=== PATIENT | male | born 1960 | race Caucasian/White ===

== ENCOUNTER 2016-07-30 15:15 | Inpatient (IN) | payer MEDICARE, OTHER ==
--- NOTE | ~2016-07-30 | HP ---
History And Physical [address] [place]. [address] NAME: ROMEO BARRIGA : 58 STATUS : ADM Zakia PAT#: [id number] AGE: 55 ADM/REG DATE : 07/30/16 MR#: [id number] REPORT SERV DATE: 07/31/16 DICTATED BY: ANTHONY PALOMARES DATE: 07/30/16 REPORT STATUS : Draft TRANSCRIBED BY: MODL DATE: 07/30/16 DATE OF ADMISSION: 07/30/2016 CHIEF COMPLAINT: Nausea, vomiting, and diarrhea with chills and cough. HISTORY OF PRESENT ILLNESS: This is a 55-year-old male patient with a history of Down's syndrome, Crow's esophagus, and hypercholesteremia, who is a resident at [facility], was brought to the emergency room today to be evaluated with the above-mentioned complaint. History is obtained from the patient's family who is at bedside and his caregiver who is also at bedside. According to available data, Mr. Barriga had been having some vomiting and diarrhea for about two to three days now. Today, he started having chills as well and has had a cough with upper airway rattling for the last couple of days as well. He got some breathing treatments and CPT at the facility, but continued to have vomiting and runny diarrhea, and the patient was sent to the emergency room to be evaluated. In the emergency room, he continued to have vomiting while he was in the lobby and initial workup including CT scan of his abdomen and pelvis and chest x-ray showed bibasilar infiltrates. Hospitalist Service is asked to admit him for further evaluation and treatment. At the time of my evaluation, Mr. Barriga was awake and alert. He has Down's syndrome and is not very communicate, but he does communicate with his caregivers. Apparently, he has not complained of any chest pain or palpitations. He does not seem to have any orthopnea. He does have a cough with some upper airway rattling and secretions. No recent history of hemoptysis, night sweats, or weight loss. He has not had any recent falls or loss of consciousness. He has not had any temperature, but did have some chills in the last few hours of being here. He has not had any hematemesis, hematochezia, or hematuria. No other history of recent travel or exposures other than those mentioned above. PAST MEDICAL HISTORY: Significant for history of Down's syndrome, Crow's esophagus, and hypercholesteremia. SOCIAL HISTORY: He has never smoked, does not drink, or use recreational drugs. FAMILY HISTORY: Noncontributory. MEDICATIONS: His medications at home were reviewed by me in the chart today and reordered by me. REVIEW OF SYSTEMS: As in history of present illness. All other systems were reviewed in detail and are quite unremarkable. PHYSICAL EXAMINATION: History And Physical [address] [address] NAME: ROMEO BARRIGA : 58 STATUS : ADM Zakia PAT#: [id number] AGE: 55 ADM/REG DATE : 07/30/16 MR#: [id number] REPORT SERV DATE: 07/31/16 DICTATED BY: ANTHONY PALOMARES DATE: 07/30/16 REPORT STATUS : Draft TRANSCRIBED BY: JACI DATE: 07/30/16 GENERAL: This is a pleasant 55-year-old, not in any acute distress. HEENT: His head is atraumatic, normocephalic. He is alert, awake, oriented to time, place, and person. His pupils are equal, reacting to light and accommodating. External ocular muscles are intact. Membranes are moist and pink. Sclerae are nonicteric. Oral hygiene is poor. NECK: Supple with no jugular venous distention, lymphadenopathy, or thyromegaly. LUNGS: Auscultation of his lungs revealed bilateral coarse crackles. HEART: Heart sounds were regular with no murmurs, rubs, or gallops. ABDOMEN: Soft, nontender. Bowel sounds are present. EXTREMITIES: Showed no cyanosis, clubbing, or edema. NEUROLOGIC: Grossly intact with no focal sensory or motor deficits. Higher functions appear intact. He does have Down's syndrome as mentioned above and does not communicate very well. VITAL SIGNS: His vital signs today showed a temperature of 99.7, pulse 88, respirations 16 a minute, blood pressure was 118/72, oxygen saturations were 100% breathing 2 L of oxygen via nasal cannula. LABORATORY DATA: Reviewed on the Gnzo system showed a sodium of 139, potassium 4.1, chloride 107, CO2 of 23, BUN was 22 with a creatinine of 1.06, blood glucose was 120. His alkaline phosphatase, ALT, AST, and lipase were within normal limits. CBC showed a normal white blood cell count, hemoglobin was 12.3, hematocrit 35.9, and platelet count was 167. Urinalysis was not done today. Films of the CT scan of his abdomen and pelvis and chest x- ray were reviewed by me on the PACS today and interpreted by me. Per my interpretation, there are bilateral small basilar infiltrates, left greater than right. There was no effusion. Please see Radiology report for details. The rest of the abdomen and pelvis was unremarkable. IMPRESSION: 1. Nausea, vomiting, and diarrhea. 2. Healthcare-associated pneumonia versus aspiration pneumonitis. 3. Hiatal hernia. 4. History of Crow's esophagus. 5. Down's syndrome. 6. Hypercholesterolemia. PLAN: We will admit Mr. Barriga to Med/Surg tele floor for a 24-hour observation period. After cultures are obtained, we will start him on empiric IV antibiotics for healthcare- associated pneumonia, although his white blood cell count is normal and given his history, it could be from acute aspiration and aspiration pneumonitis. We will go ahead and get a lactate level and procalcitonin. We will start him on Zosyn intravenously for now. We will maximize bronchodilator treatments, continue supplemental oxygen therapy, and start him on CPT as well. He will be on IV fluids for volume resuscitation and we will provide intravenous Zofran and/or Phenergan on an as needed basis for his symptoms. We will also check his stool for Clostridium difficile. We will keep him n.p.o. for now and place him on unfractionated heparin for DVT prophylaxis while he is here. I have discussed the above plans with the patient's caregivers and the above plan of care was explained to them. They are in agreement with it. History And Physical [address] [place]. [address] NAME: ROMEO BARRIGA : 58 STATUS : ADM Zakia PAT#: [id number] AGE: 55 ADM/REG DATE : 07/30/16 MR#: [id number] REPORT SERV DATE: 07/31/16 DICTATED BY: ANTHONY PALOMARES DATE: 07/30/16 REPORT STATUS : Draft TRANSCRIBED BY: JACI DATE: 07/30/16 Hospitalist Service will be following him during his stay here. MR/MARIANOL Anthony Palomares M.D. / [id number] CC: Elfego Shore MD
--- NOTE | ~2016-07-30 | DS ---
Discharge Summary [facility] [address] [place]. [address] NAME: ROMEO CANCINO : 58 STATUS : DIS IN PAT#: [id number] AGE: 55 ADM/REG DATE : 07/31/16 MR#: [id number] REPORT SERV DATE: 08/07/16 DICTATED BY: ROCÍO VALDIVIA DATE: 08/06/16 REPORT STATUS : Draft TRANSCRIBED BY: MODL DATE: 08/06/16 ADMISSION DATE: 07/31/2016 DISCHARGE DATE: 08/06/2016 This is a 55-year-old male who is going to be discharged with the final diagnoses of: 1. Bilateral pneumonia. 2. Possible aspiration. 3. History of Crow's esophagus. 4. Down syndrome. DIAGNOSTIC EXAM: CAT scan of the abdomen and pelvis showing evaluation is limited due to artifact arising from the patient's arms; prominent distal colonic fecal stasis; prominence of the urinary bladder wall, thickness nonspecific; hiatal hernia, bibasilar infiltrates, left greater than the right; gallbladder and pancreas, not well visualized. Chest x-ray showing minimal atelectasis or infiltrate in the medial lung bases, otherwise, no acute cardiopulmonary abnormality. Swallowing study showing no aspiration. Gastric emptying study showing delayed gastric emptying with 12% emptying at 90 minutes. Repeat chest x-ray showed bilateral asymmetric infiltrates, left lung is worse than the right; increased density in the left lung base consistent with consolidation and/or effusion; chest is worse compared to the previous study. HOSPITAL COURSE: Please refer to the H and P done by Dr. Cochran dated on 07/31/[address] Shore' interim discharge on 08/05/2016. Since I took care of this patient, the patient is being treated with broad-spectrum antibiotics for bilateral pneumonia. The patient continued to improve and so far has completed five days of treatment of Zosyn. He is now afebrile and saturating at 95% on room air and able to eat. We got PT evaluation and they recommended that the patient be on mechanical soft diet, choppy gravy, and thin liquids. They did not find any aspiration in the patient. The patient is able to eat without any choking and he will be discharged back to [facility] with the above diagnosis. He will be on the following medications: Flonase two sprays at bedtime, Protonix 40 mg twice a day, vitamin D 1000 units a day, Lac-Hydrin lotion, oyster calcium 500 mg three times a day, iron 300 mg twice a day, VESIcare 5 mg a day, DuoNeb inhaled twice a day, and Colace 100 mg twice a day. The patient will follow up with [facility] doctor. This has been explained to the sister and she agreed and understood the plan. SHANEL/JACI Rocío Valdivia M.D. / [id number] Discharge Summary [address] [address] NAME: ROMEO CANCINO : 58 STATUS : DIS IN PAT#: [id number] AGE: 55 ADM/REG DATE : 07/31/16 MR#: [id number] REPORT SERV DATE: 08/07/16 DICTATED BY: ROCÍO VALDIVIA DATE: 08/06/16 REPORT STATUS : Draft TRANSCRIBED BY: JACI DATE: 08/06/16 CC: Familia Haji TINA [place] doctor
--- NOTE | ~2016-07-30 | IDS ---
Interim Discharge Summary [facility] [address] [place]. [address] NAME: ROMEO CANCINO : 58 STATUS : ADM IN [facility]#: [id number] AGE: 55 ADM/REG DATE : 07/31/16 MR#: [id number] REPORT SERV DATE: 08/05/16 DICTATED BY: ELFEGO NAVARRO DATE: 08/04/16 REPORT STATUS : Draft TRANSCRIBED BY: MODJacquelyn DATE: 08/04/16 ADMISSION DATE: 07/31/2016 DISCHARGE DATE: DATE OF INTERIM DISCHARGE: 08/04/2016. PROCEDURES DONE: 1. 08/03/2012, chest x-ray: Bilateral asymmetric infiltrates. Left lung is worse than the right. Increased density in the left lung base, consistent with consolidation and/or effusion. The chest is worse compared to previous study. 2. 08/03/2016, gastric emptying study, delayed gastric emptying with 12% emptying at 90 minutes. Normal ranges 50% or greater. 3. 08/02/2015, swallow study:. a. No aspiration. 4. 08/02/2015, chest x-ray:. a. Persistent left perihilar basilar infiltrate as well as right suprahilar infiltrate with small left pleural effusion. The infiltrates appear minimally improved since prior exam. REASON FOR ADMISSION: Nausea, vomiting, and diarrhea with chills and cough. HISTORY OF HOSPITAL STAY: A 55-year-old white male with a past medical history of Down syndrome, Crow's esophagus, and hypercholesterolemia presenting with nausea, vomiting, and diarrhea with chills and cough. Unfortunately, the patient is not a very good historian. The patient had a questionable health-associated pneumonia versus aspiration as an initial diagnosis. The patient was started on Zosyn. Eventually, the patient's chest x- ray showed improving infiltrate. However, questionable if the patient is having atelectasis. Unfortunately, the patient cannot follow commands enough due to the Down syndrome. In addition, the patient is also bed-bound. The patient cannot stand and mobilize in the room. Therefore, the patient's pneumonia will be recurring quite frequently post discharge. In addition, the patient also had a positive gastric emptying study. The patient has been started on mechanical soft. The patient is not a good candidate for Reglan for prokinetic medications. Therefore, we will try to get dietary consult for further eval and treatment of gastroparesis. Made recommendations of frequent and small meals to decrease nausea and vomiting. DIAGNOSES UPON DISCHARGE: 1. Nausea, vomiting, and diarrhea secondary to gastroparesis. Recommend getting a dietary consult for eval and treatment of gastroparesis. Need recommendation for increasing frequency and small meals to decrease nausea and vomiting. 2. Healthcare-associated pneumonia versus aspiration. Swallow study shows no aspiration. The patient received approximately five days of Zosyn. WBC has been down. The patient does not show any fevers at this time. Unfortunately, the patient cannot mobilize since he is bed-bound. In addition, the patient does not generate enough negative pressure to cough any significant sputum. 3. Down syndrome, currently asymptomatic. Interim Discharge Summary [address] [address] NAME: ROMEO CANCINO : 58 STATUS : ADM IN [facility]#: [id number] AGE: 55 ADM/REG DATE : 07/31/16 MR#: [id number] REPORT SERV DATE: 08/05/16 DICTATED BY: ELFEGO NAVARRO DATE: 08/04/16 REPORT STATUS : Draft TRANSCRIBED BY: AJCI DATE: 08/04/16 DELANEY/JACI Elfego Navarro MD / [id number] CC: MD EMERALD Bridges
[~2016-07-30 15:15] MED LIST: ACET500CAP PO; AMMONIUM LAC122 EX; ANTI-FUNGAL12 TOP; BABY OIL OT; BACDS PO; BAZA TOP; CALMOSEPTINE O2.5 OZ T; CARMEX T; CARMEX TOP; CEFT5 PO; CHAPSTICK T; CIP5 PO; CITRACAL PO; CLARIT10 PO; DIOCTO50 MG/5 ML PO; DSS PO; FER-IRON15 MG/0.6 PO; FERROUS SULF325 M1 PO; FLOMAX4 PO; FLONASE NAS; FLOXIN OTIC OT; FLUCON1 PO; IRON325 MG PO; K500 PO; KENCR.1 TOP; LAC HYDRIN 12% EX; LAC-HYDRIN EX; LAC-HYDRIN121 EX; LAC-HYDRIN121 TOP; LEVAQUIN5T PO; LOTRIMIN AF21 EX; LOTRISONE EX; LUBRIDERM LOTION4 O2 TOP; LUNESTA1 MG PO; LUNESTA3 MG PO; MAXIMUM D3 PO; MELATONIN5 M1 PO; MIRALAXPKT PO; MUCINEX CGH1 ML OR; NEUR100 PO; OCUFLOX OT; OS500+D PO; OYST-CAL500 MG PO; OYSTER SHELL CALCIUM PO; PHENYLEPHRINE RC; PROLIA60 MG/1 ML SC; PROTONIX PO; PROTONIX20 MG PO; RECLAST IV; REG5 PO; SELENIUM; SELENIUM SULFIDE TOP; SELENIUM T; SELSUN BLUE3 % EX; TITRALALIQ PO; TUCKS EX; TYLENOL PM PO; VALTREX1 GM PO; VESICARE10 MG PO; VESICARE5 PO; VITAMIN D3 PO; VITAMIN D31000 UNIT PO; ZOCOR10 PO; ZOCOR20 PO; [UNRECOGNIZED DRUG - OTHER]; [UNRECOGNIZED DRUG - OTHER] T; [UNRECOGNIZED DRUG - OTHER] T; [UNRECOGNIZED DRUG - OTHER] T; [UNRECOGNIZED DRUG - OTHER] T; [UNRECOGNIZED DRUG - OTHER] T
[2016-07-30 15:41] LABS: BASOPHILS 0.3 %; BASOPHILS ABSOLUTE 0.02 10/3/uL (0.0-0.16); EOSINOPHILS 0.1 %; EOSINOPHILS ABSOLUTE 0.01 10/3/uL (0.0-0.53); ER CBC TAT 0 Hrs 05 Mins; HEMOGLOBIN 12.3 g/dL (13.6-17.8); IMMATURE GRANULOCYTES 0.7 %; IMMATURE GRANULOCYTES ABSOLUTE 0.05 10/3/uL (0.0-0.11); LYMPHOCYTES 9.9 %; LYMPHOCYTES ABSOLUTE 0.75 10/3/uL (0.67-4.30); MEAN CORPUS HGB CONC 34.3 g/dL (32.0-36.0); MEAN CORPUSCULAR HEMOGLOB 33.2 pg (26.0-34.0); MEAN PLATELET VOLUME 10.5 fL (9.2-13.0); MONOCYTES 3.5 %; MONOCYTES ABSOLUTE 0.27 10/3/uL (0.21-1.20); NEUTROPHILS 85.5 %; NEUTROPHILS ABSOLUTE 6.51 10/3/uL (2.02-8.40); PLATELET COUNT 167 10/3/uL (150-400); RBC DISTRIBUTION WIDTH 13.2 % (12.0-16.0); WHITE BLOOD CELLS 7.6 10/3/uL (4.5-10.5)
[2016-07-30 15:48] LABS: HEMATOCRIT 35.9 % (40.0-51.0); MANUAL DIFF NO %
[2016-07-30 15:55] LABS: A/G RATIO 0.7 (0.7-1.9); ALBUMIN 2.9 G/DL (3.5-5.0); ALKALINE PHOSPHATASE 87 U/L (45-117); BUN (BLOOD UREA NITROGEN) 22 MG/DL (6-23); CHLORIDE, SERUM 107 MMOL/L (96-112); CO2 (CARBON DIOXIDE) 23 MMOL/L (24-34); CREATININE 1.06 MG/DL (0.70-1.30); GFR AFRICAN AMERICAN 90 ML/MIN (>=60); GFR NON AFRICAN AMERICAN 78 ML/MIN (>=60); GLOBULIN 4.1 G/DL (2.5-4.1); GLUCOSE, SERUM 120 MG/DL (60-99); POTASSIUM, SERUM 4.1 MMOL/L (3.5-5.3); SGOT(AST) 21 U/L (5-40); SGPT(ALT) 30 U/L (5-65); SODIUM, SERUM 139 MMOL/L (135-148); TOTAL BILIRUBIN 0.6 MG/DL (0-1.2)
[2016-07-30] MEDS ORDERED: VITAMIN D31000 UNIT PO (19:30)
[2016-07-30] MEDS ORDERED: LAC-HYDRIN TOP (19:31)
[2016-07-30] MEDS ORDERED: OYST-CAL500 MG PO (19:32)
[2016-07-30] MEDS ORDERED: BAZA T (19:32)
[2016-07-30] MEDS ORDERED: VESICARE5 PO (19:34)
[2016-07-30] MEDS ORDERED: FESO4UDL PO (19:34)
[2016-07-30] MEDS ORDERED: FLONASE NAS (19:35)
[2016-07-30] MEDS ORDERED: DUONEB INH (19:35)
[2016-07-30] MEDS ORDERED: SILACE60 MG/15 M PO (19:39)
[2016-07-30] MEDS ORDERED: COLACEUDL PO (19:39)
[2016-07-30] MEDS ORDERED: PROTONI1 PO (19:40)
[2016-07-31 04:03] LABS: BASOPHILS 0.2 %; BASOPHILS ABSOLUTE 0.01 10/3/uL (0.0-0.16); EOSINOPHILS 0.7 %; EOSINOPHILS ABSOLUTE 0.04 10/3/uL (0.0-0.53); HEMOGLOBIN 10.9 g/dL (13.6-17.8); IMMATURE GRANULOCYTES 0.5 %; IMMATURE GRANULOCYTES ABSOLUTE 0.03 10/3/uL (0.0-0.11); LYMPHOCYTES ABSOLUTE 0.66 10/3/uL (0.67-4.30); MEAN CORPUSCULAR HEMOGLOB 32.9 pg (26.0-34.0); MEAN PLATELET VOLUME 10.5 fL (9.2-13.0); MONOCYTES ABSOLUTE 0.44 10/3/uL (0.21-1.20); NEUTROPHILS 78.6 %; NEUTROPHILS ABSOLUTE 4.31 10/3/uL (2.02-8.40); PLATELET COUNT 148 10/3/uL (150-400); RBC DISTRIBUTION WIDTH 13.1 % (12.0-16.0); RED CELL COUNT 3.31 10/6/uL (4.7-6.1); WHITE BLOOD CELLS 5.5 10/3/uL (4.5-10.5)
[2016-07-31 04:08] LABS: HEMATOCRIT 32.1 % (40.0-51.0); MANUAL DIFF NO %
[2016-07-31 04:36] LABS: BUN (BLOOD UREA NITROGEN) 19 MG/DL (6-23); CALCIUM, SERUM 8.2 MG/DL (8.5-10.4); CHLORIDE, SERUM 107 MMOL/L (96-112); CO2 (CARBON DIOXIDE) 27 MMOL/L (24-34); CREATININE 0.98 MG/DL (0.70-1.30); GFR AFRICAN AMERICAN 99 ML/MIN (>=60); GFR NON AFRICAN AMERICAN 86 ML/MIN (>=60); GLUCOSE, SERUM 93 MG/DL (60-99); PHOSPHORUS, SERUM 2.6 MG/DL (2.5-4.5); POTASSIUM, SERUM 3.9 MMOL/L (3.5-5.3); SODIUM, SERUM 141 MMOL/L (135-148)
[2016-08-01 06:19] LABS: HEMOGLOBIN 10.1 g/dL (13.6-17.8); MANUAL DIFF YES %; MEAN CORPUS HGB CONC 34.8 g/dL (32.0-36.0); MEAN CORPUSCULAR VOLUME 94.8 fL (80-100); MEAN PLATELET VOLUME 10.4 fL (9.2-13.0); PLATELET COUNT 160 10/3/uL (150-400); RBC DISTRIBUTION WIDTH 12.5 % (12.0-16.0); RED CELL COUNT 3.06 10/6/uL (4.7-6.1); WHITE BLOOD CELLS 6.5 10/3/uL (4.5-10.5)
[2016-08-01 06:41] LABS: CALCIUM, SERUM 8.1 MG/DL (8.5-10.4); CHLORIDE, SERUM 105 MMOL/L (96-112); CREATININE 0.67 MG/DL (0.70-1.30); GFR AFRICAN AMERICAN 124 ML/MIN (>=60); GFR NON AFRICAN AMERICAN 107 ML/MIN (>=60); GLUCOSE, SERUM 75 MG/DL (60-99); POTASSIUM, SERUM 3.8 MMOL/L (3.5-5.3); SODIUM, SERUM 137 MMOL/L (135-148)
[2016-08-01 06:48] LABS: BUN (BLOOD UREA NITROGEN) 10 MG/DL (6-23); CO2 (CARBON DIOXIDE) 20 MMOL/L (24-34)
[2016-08-01 07:20] LABS: BAND NEUTROPHILS 14 %; EOSINOPHILS 2 %; EOSINOPHILS ABSOLUTE (CALC) 0.13 10/3/uL (0.0-0.53); LYMPHOCYTES 12 %; LYMPHOCYTES ABSOLUTE (CALC) 0.78 10/3/uL (0.67-4.30); MONOCYTES 12 %; MONOCYTES ABSOLUTE (CALC) 0.78 10/3/uL (0.21-1.20); NEUTROPHILS ABSOLUTE (CALC) 4.81 10/3/uL (2.02-8.40); PLATELET ESTIMATE ADQ (ADEQUATE); RBC MORPHOLOGY NORM (NORMAL); SEGMENTED NEUTROPHIL (0) 60 %; TOTAL NUCLEATED CELLS 100
[2016-08-01 08:18] LABS: PROCALCITONIN 0.56 ng/mL (<0.5)
[2016-08-01 12:21] LABS: BE (BASE EXCESS) -4.9 MEQ/L (0 +/- 2.5); CARBOXYHEMOGLOBIN 0.6 % (0-3); HCO3 (ACTUAL BICARBONATE) 18.3 MEQ/L (23-27); HEMOBLOGIN CONTENT 12.9 G/DL (14-18); INSTRUMENT SERIAL # 8083; METHEMOGLOBIN 0.1 % (0-3); O2 CONTENT 17.4 VOL% (18-24); PCO2 (CO2 TENSION) 29 MMHG (35-45); PO2 (O2 TENSION) 84 MMHG (79-93); SAMPLE Arterial; pH 7.42 (7.37-7.43)
[2016-08-01 12:22] LABS: DEVICE Nasal Cannula/Venti
[2016-08-02 04:12] LABS: CARBOXYHEMOGLOBIN 0.3 % (0-3); DEVICE NC; HCO3 (ACTUAL BICARBONATE) 24.2 MEQ/L (23-27); INSTRUMENT SERIAL # 11843; METHEMOGLOBIN 0.3 % (0-3); O2 CONTENT 16.1 VOL% (18-24); OPERATOR ID 17537; PCO2 (CO2 TENSION) 34 MMHG (35-45); PO2 (O2 TENSION) 79 MMHG (79-93); SAMPLE Arterial; pH 7.48 (7.37-7.43)
[2016-08-02 07:04] LABS: HEMATOCRIT 31.8 % (40.0-51.0); HEMOGLOBIN 11.2 g/dL (13.6-17.8); MEAN CORPUS HGB CONC 35.2 g/dL (32.0-36.0); MEAN CORPUSCULAR HEMOGLOB 33.2 pg (26.0-34.0); MEAN CORPUSCULAR VOLUME 94.4 fL (80-100); MEAN PLATELET VOLUME 10.5 fL (9.2-13.0); PLATELET COUNT 198 10/3/uL (150-400); RBC DISTRIBUTION WIDTH 12.3 % (12.0-16.0); RED CELL COUNT 3.37 10/6/uL (4.7-6.1); WHITE BLOOD CELLS 7.3 10/3/uL (4.5-10.5)
[2016-08-02 07:06] LABS: MANUAL DIFF YES %
[2016-08-02 07:15] LABS: BUN (BLOOD UREA NITROGEN) 7 MG/DL (6-23); CALCIUM, SERUM 8.1 MG/DL (8.5-10.4); CHLORIDE, SERUM 104 MMOL/L (96-112); CO2 (CARBON DIOXIDE) 27 MMOL/L (24-34); CREATININE 0.81 MG/DL (0.70-1.30); GFR AFRICAN AMERICAN 115 ML/MIN (>=60); GFR NON AFRICAN AMERICAN 99 ML/MIN (>=60); GLUCOSE, SERUM 89 MG/DL (60-99); POTASSIUM, SERUM 3.8 MMOL/L (3.5-5.3); SODIUM, SERUM 140 MMOL/L (135-148)
[2016-08-02 07:36] LABS: BAND NEUTROPHILS 2 %; BASOPHILS 1 %; BASOPHILS ABSOLUTE (CALC) 0.07 10/3/uL (0.0-0.16); EOSINOPHILS 2 %; EOSINOPHILS ABSOLUTE (CALC) 0.15 10/3/uL (0.0-0.53); IMMATURE GRANS ABSOLUTE (CALC) 0.07 10/3/uL (0.0-0.11); LYMPHOCYTES 7 %; LYMPHOCYTES ABSOLUTE (CALC) 0.51 10/3/uL (0.67-4.30); METAMYELOCYTES 1 %; MONOCYTES 10 %; MONOCYTES ABSOLUTE (CALC) 0.73 10/3/uL (0.21-1.20); NEUTROPHILS ABSOLUTE (CALC) 5.77 10/3/uL (2.02-8.40); PLATELET ESTIMATE ADQ (ADEQUATE); RBC MORPHOLOGY NORM (NORMAL); SEGMENTED NEUTROPHIL (0) 77 %; TOTAL NUCLEATED CELLS 100
[2016-08-03 07:22] LABS: ALBUMIN 2.2 G/DL (3.5-5.0); BUN (BLOOD UREA NITROGEN) 7 MG/DL (6-23); CALCIUM, SERUM 8.2 MG/DL (8.5-10.4); CHLORIDE, SERUM 103 MMOL/L (96-112); CO2 (CARBON DIOXIDE) 27 MMOL/L (24-34); CREATININE 0.91 MG/DL (0.70-1.30); GFR AFRICAN AMERICAN 109 ML/MIN (>=60); GFR NON AFRICAN AMERICAN 94 ML/MIN (>=60); GLUCOSE, SERUM 95 MG/DL (60-99); PHOSPHORUS, SERUM 3.1 MG/DL (2.5-4.5); POTASSIUM, SERUM 3.8 MMOL/L (3.5-5.3); SODIUM, SERUM 140 MMOL/L (135-148)
[2016-08-03 07:38] LABS: HEMATOCRIT 32.1 % (40.0-51.0); HEMOGLOBIN 11.2 g/dL (13.6-17.8); MEAN CORPUS HGB CONC 34.9 g/dL (32.0-36.0); MEAN CORPUSCULAR HEMOGLOB 32.7 pg (26.0-34.0); MEAN CORPUSCULAR VOLUME 93.9 fL (80-100); MEAN PLATELET VOLUME 10.4 fL (9.2-13.0); NUCLEATED RED BLOOD CELLS 0.3 /100WBC (0-0); PLATELET COUNT 222 10/3/uL (150-400); RBC DISTRIBUTION WIDTH 12.7 % (12.0-16.0); RED CELL COUNT 3.42 10/6/uL (4.7-6.1); WHITE BLOOD CELLS 6.9 10/3/uL (4.5-10.5)
[2016-08-03 07:39] LABS: MANUAL DIFF YES %
[2016-08-03 07:58] LABS: BAND NEUTROPHILS 7 %; BASOPHILS 1 %; BASOPHILS ABSOLUTE (CALC) 0.07 10/3/uL (0.0-0.16); EOSINOPHILS 3 %; EOSINOPHILS ABSOLUTE (CALC) 0.21 10/3/uL (0.0-0.53); IMMATURE GRANS ABSOLUTE (CALC) 1.04 10/3/uL (0.0-0.11); LYMPHOCYTES 17 %; LYMPHOCYTES ABSOLUTE (CALC) 1.17 10/3/uL (0.67-4.30); METAMYELOCYTES 11 %; MONOCYTES 8 %; MONOCYTES ABSOLUTE (CALC) 0.55 10/3/uL (0.21-1.20); MYELOCYTES 4 %; NEUTROPHILS ABSOLUTE (CALC) 3.86 10/3/uL (2.02-8.40); SEGMENTED NEUTROPHIL (0) 49 %; TOTAL NUCLEATED CELLS 100
[2016-08-03 07:59] LABS: PATH REVIEW YES; PLATELET ESTIMATE ADQ (ADEQUATE); RBC MORPHOLOGY NORM (NORMAL)
[2016-08-03 09:36] LABS: PATH REVIEW SEE PATHOLOGY REPORT
[2016-08-04 05:41] LABS: HEMATOCRIT 33.3 % (40.0-51.0); HEMOGLOBIN 11.5 g/dL (13.6-17.8); MEAN CORPUS HGB CONC 34.5 g/dL (32.0-36.0); MEAN CORPUSCULAR HEMOGLOB 32.5 pg (26.0-34.0); MEAN CORPUSCULAR VOLUME 94.1 fL (80-100); MEAN PLATELET VOLUME 10.3 fL (9.2-13.0); PLATELET COUNT 225 10/3/uL (150-400); RBC DISTRIBUTION WIDTH 12.8 % (12.0-16.0); RED CELL COUNT 3.54 10/6/uL (4.7-6.1)
[2016-08-04 05:45] LABS: MANUAL DIFF YES %
[2016-08-04 05:49] LABS: ALBUMIN 2.2 G/DL (3.5-5.0); BUN (BLOOD UREA NITROGEN) 8 MG/DL (6-23); CALCIUM, SERUM 8.2 MG/DL (8.5-10.4); CHLORIDE, SERUM 105 MMOL/L (96-112); CO2 (CARBON DIOXIDE) 25 MMOL/L (24-34); CREATININE 0.85 MG/DL (0.70-1.30); GFR AFRICAN AMERICAN 113 ML/MIN (>=60); GFR NON AFRICAN AMERICAN 97 ML/MIN (>=60); GLUCOSE, SERUM 92 MG/DL (60-99); PHOSPHORUS, SERUM 3.7 MG/DL (2.5-4.5); SODIUM, SERUM 140 MMOL/L (135-148)
[2016-08-04 07:16] LABS: BAND NEUTROPHILS 5 %; EOSINOPHILS 3 %; EOSINOPHILS ABSOLUTE (CALC) 0.21 10/3/uL (0.0-0.53); LYMPHOCYTES 18 %; LYMPHOCYTES ABSOLUTE (CALC) 1.26 10/3/uL (0.67-4.30); MONOCYTES 8 %; MONOCYTES ABSOLUTE (CALC) 0.56 10/3/uL (0.21-1.20); NEUTROPHILS ABSOLUTE (CALC) 4.97 10/3/uL (2.02-8.40); PLATELET ESTIMATE ADQ (ADEQUATE); RBC MORPHOLOGY NORM (NORMAL); SEGMENTED NEUTROPHIL (0) 66 %; TOTAL NUCLEATED CELLS 100
[2016-08-05 05:06] LABS: HEMATOCRIT 33.3 % (40.0-51.0); HEMOGLOBIN 11.7 g/dL (13.6-17.8); MEAN CORPUS HGB CONC 35.1 g/dL (32.0-36.0); MEAN CORPUSCULAR HEMOGLOB 33.1 pg (26.0-34.0); MEAN CORPUSCULAR VOLUME 94.1 fL (80-100); MEAN PLATELET VOLUME 10.4 fL (9.2-13.0); PLATELET COUNT 263 10/3/uL (150-400); RED CELL COUNT 3.54 10/6/uL (4.7-6.1); WHITE BLOOD CELLS 6.3 10/3/uL (4.5-10.5)
[2016-08-05 05:08] LABS: MANUAL DIFF YES %
[2016-08-05 05:24] LABS: A/G RATIO 0.6 (0.7-1.9); ALBUMIN 2.3 G/DL (3.5-5.0); ALKALINE PHOSPHATASE 78 U/L (45-117); CALCIUM, SERUM 8.3 MG/DL (8.5-10.4); CHLORIDE, SERUM 102 MMOL/L (96-112); CO2 (CARBON DIOXIDE) 27 MMOL/L (24-34); CREATININE 0.91 MG/DL (0.70-1.30); GFR AFRICAN AMERICAN 109 ML/MIN (>=60); GFR NON AFRICAN AMERICAN 94 ML/MIN (>=60); GLOBULIN 3.8 G/DL (2.5-4.1); GLUCOSE, SERUM 87 MG/DL (60-99); POTASSIUM, SERUM 4.1 MMOL/L (3.5-5.3); SGOT(AST) 26 U/L (5-40); SGPT(ALT) 30 U/L (5-65); SODIUM, SERUM 138 MMOL/L (135-148); TOTAL BILIRUBIN 0.7 MG/DL (0-1.2); TOTAL PROTEIN 6.1 G/DL (6.0-8.5)
[2016-08-05 05:37] LABS: BUN (BLOOD UREA NITROGEN) 12 MG/DL (6-23)
[2016-08-05 05:38] LABS: PHOSPHORUS, SERUM 4.7 MG/DL (2.5-4.5)
[2016-08-05 06:01] LABS: BAND NEUTROPHILS 1 %; EOSINOPHILS 3 %; EOSINOPHILS ABSOLUTE (CALC) 0.19 10/3/uL (0.0-0.53); IMMATURE GRANS ABSOLUTE (CALC) 0.19 10/3/uL (0.0-0.11); LYMPHOCYTES 23 %; LYMPHOCYTES ABSOLUTE (CALC) 1.45 10/3/uL (0.67-4.30); METAMYELOCYTES 3 %; MONOCYTES 9 %; MONOCYTES ABSOLUTE (CALC) 0.57 10/3/uL (0.21-1.20); NEUTROPHILS ABSOLUTE (CALC) 3.91 10/3/uL (2.02-8.40); PLATELET ESTIMATE ADQ (ADEQUATE); SEGMENTED NEUTROPHIL (0) 61 %; TOTAL NUCLEATED CELLS 100
[2016-08-06] MEDS ORDERED: VITAMIN D3 (11:07)
[2016-08-06] MEDS ORDERED: FERROUS SULFATE PO (11:10)
[2017-01-10] MEDS ORDERED: VESICARE5 PO (18:09)
[2017-01-10] MEDS ORDERED: PROTONI1 PO (18:09)
[2017-01-10] MEDS ORDERED: OYST-CAL500 MG PO (18:10)
[2017-01-10] MEDS ORDERED: DUONEB INH (18:10)
[2017-01-10] MEDS ORDERED: COLACEUDL PO (18:11)
[2017-01-10] MEDS ORDERED: VITAMIN D400 UNI1 PO (18:11)
[2017-01-10] MEDS ORDERED: LAC-HYDRIN TOP (18:11)
[2017-01-10] MEDS ORDERED: FLONASE NAS (18:14)
[2017-01-10] MEDS ORDERED: FERROUS SULFATE 15 MG/ML PO (18:14)
[2017-01-10] MEDS ORDERED: CLARIT10 PO (18:15)
[2017-01-10] MEDS ORDERED: REG5 PO (18:15)
[2017-01-10] MEDS ORDERED: ZOFRAN4 PO (18:16)
[2017-01-10] MEDS ORDERED: SELENIUM SULFIDE 2.5% TOP (18:17)
[2017-01-10] MEDS ORDERED: KLONO5 PO (18:18)
[2017-01-10] MEDS ORDERED: CALMOSEPTINE O2.5 OZ TOP (18:21)
[2017-01-10] MEDS ORDERED: [UNRECOGNIZED DRUG - OTHER] TOP (18:23)
[2017-01-19] MEDS ORDERED: SUCR PO (13:26)
[2017-01-19] MEDS ORDERED: ACETSUP650 PO/LIQ (13:27)
== END 2016-08-06 14:09 | DRG 193 ==
LOC: ER 15:15 → CDU1 20:41 → 2SO 07-31 22:39
PROVIDERS: Emergency Medicine; Hospitalist; Internal Medicine
DX: J18.9 Pneumonia, unspecified organism (principal); J96.92 Respiratory failure, unspecified with hypercapnia; J90 Pleural effusion, not elsewhere classified; K92.1 Melena; K31.84 Gastroparesis; Q90.9 Down syndrome, unspecified; K22.70 Barrett's esophagus without dysplasia; K44.9 Diaphragmatic hernia without obstruction or gangrene; E78.00 Pure hypercholesterolemia, unspecified; Z74.01 Bed confinement status; R00.0 Tachycardia, unspecified; R00.1 Bradycardia, unspecified; I49.3 Ventricular premature depolarization
CPT/HCPCS: 36600; 71010; 71020; 74176; 74230; 78264; 80048; 80053; 80069; 81001; 82272; 82805; 83605; 83690; 83735; 84100; 84145; 85025; 87040; 92610-GN; 92611-GN; 94640; 96374; 96375; 99285; A9270-GY; A9541; C9113; G8996-CK-GN; G8996-CN-GN; G8997-CK-GN; G8997-CN-GN; G8998-CK-GN; G8998-CN-GN; J0456; J2543

== ENCOUNTER 2016-08-13 11:59 | Emergency (ER) | payer MEDICARE, OTHER ==
[~2016-08-13 11:59] MED LIST changes: +BAZA T; +COLACEUDL PO; +DUONEB INH; +FERROUS SULFATE PO; +FESO4UDL PO; +LAC-HYDRIN TOP; +PROTONI1 PO; +SILACE60 MG/15 M PO; +VITAMIN D3
[2016-08-13 12:03] LABS: BASOPHILS ABSOLUTE 0.13 10/3/uL (0.0-0.16); EOSINOPHILS 1.4 %; EOSINOPHILS ABSOLUTE 0.09 10/3/uL (0.0-0.53); ER CBC TAT 0 Hrs 05 Mins; HEMATOCRIT 36.6 % (40.0-51.0); HEMOGLOBIN 12.5 g/dL (13.6-17.8); IMMATURE GRANULOCYTES 4.2 %; IMMATURE GRANULOCYTES ABSOLUTE 0.28 10/3/uL (0.0-0.11); LYMPHOCYTES 21.6 %; LYMPHOCYTES ABSOLUTE 1.43 10/3/uL (0.67-4.30); MEAN CORPUS HGB CONC 34.2 g/dL (32.0-36.0); MEAN CORPUSCULAR HEMOGLOB 32.6 pg (26.0-34.0); MEAN CORPUSCULAR VOLUME 95.3 fL (80-100); MEAN PLATELET VOLUME 9.6 fL (9.2-13.0); MONOCYTES 9.7 %; MONOCYTES ABSOLUTE 0.64 10/3/uL (0.21-1.20); NEUTROPHILS 61.1 %; NEUTROPHILS ABSOLUTE 4.04 10/3/uL (2.02-8.40); PLATELET COUNT 268 10/3/uL (150-400); RBC DISTRIBUTION WIDTH 13.6 % (12.0-16.0); RED CELL COUNT 3.84 10/6/uL (4.7-6.1); WHITE BLOOD CELLS 6.6 10/3/uL (4.5-10.5)
[2016-08-13 12:04] LABS: MANUAL DIFF NO %
[2016-08-13 12:20] LABS: A/G RATIO 0.8 (0.7-1.9); ALKALINE PHOSPHATASE 80 U/L (45-117); CALCIUM, SERUM 8.8 MG/DL (8.5-10.4); CHLORIDE, SERUM 100 MMOL/L (96-112); CO2 (CARBON DIOXIDE) 29 MMOL/L (24-34); CREATININE 1.03 MG/DL (0.70-1.30); GFR AFRICAN AMERICAN 94 ML/MIN (>=60); GFR NON AFRICAN AMERICAN 81 ML/MIN (>=60); GLUCOSE, SERUM 96 MG/DL (60-99); POTASSIUM, SERUM 4.6 MMOL/L (3.5-5.3); SGOT(AST) 23 U/L (5-40); SGPT(ALT) 38 U/L (5-65); SODIUM, SERUM 138 MMOL/L (135-148); TOTAL BILIRUBIN 0.6 MG/DL (0-1.2)
[2016-08-13 12:22] LABS: LACTATE 2.5 MMOL/L (0.3-2.4)
[2016-08-13 12:22] LABS: BUN (BLOOD UREA NITROGEN) 23 MG/DL (6-23)
[2017-01-10] MEDS ORDERED: PROTONI1 PO (18:09)
[2017-01-10] MEDS ORDERED: VESICARE5 PO (18:09)
[2017-01-10] MEDS ORDERED: OYST-CAL500 MG PO (18:10)
[2017-01-10] MEDS ORDERED: DUONEB INH (18:10)
[2017-01-10] MEDS ORDERED: VITAMIN D400 UNI1 PO (18:11)
[2017-01-10] MEDS ORDERED: COLACEUDL PO (18:11)
[2017-01-10] MEDS ORDERED: LAC-HYDRIN TOP (18:11)
[2017-01-10] MEDS ORDERED: FLONASE NAS (18:14)
[2017-01-10] MEDS ORDERED: FERROUS SULFATE 15 MG/ML PO (18:14)
[2017-01-10] MEDS ORDERED: CLARIT10 PO (18:15)
[2017-01-10] MEDS ORDERED: REG5 PO (18:15)
[2017-01-10] MEDS ORDERED: ZOFRAN4 PO (18:16)
[2017-01-10] MEDS ORDERED: SELENIUM SULFIDE 2.5% TOP (18:17)
[2017-01-10] MEDS ORDERED: KLONO5 PO (18:18)
[2017-01-10] MEDS ORDERED: CALMOSEPTINE O2.5 OZ TOP (18:21)
[2017-01-10] MEDS ORDERED: [UNRECOGNIZED DRUG - OTHER] TOP (18:23)
[2017-01-19] MEDS ORDERED: SUCR PO (13:26)
[2017-01-19] MEDS ORDERED: ACETSUP650 PO/LIQ (13:27)
== END 2016-08-13 13:42 | disposition home or self-care (01) ==
LOC: ER 11:59
PROVIDERS: Nurse Practitioner
DX: R06.00 Dyspnea, unspecified (principal); Q90.9 Down syndrome, unspecified; J18.9 Pneumonia, unspecified organism; K21.9 Gastro-esophageal reflux disease without esophagitis; E11.43 Type 2 diabetes mellitus with diabetic autonomic (poly)neuropathy; K31.84 Gastroparesis; F03.90 Unspecified dementia, unspecified severity, without behavioral disturbance, psychotic disturbance, mood disturbance, and anxiety; Z88.8 Allergy status to other drugs, medicaments and biological substances; Z79.899 Other long term (current) drug therapy
CPT/HCPCS: 71010; 80053; 83605; 85025; 87040; 87070; 87205; 93005; 99284

== ENCOUNTER 2016-09-16 09:52 | Inpatient (IN) | payer MEDICARE, OTHER ==
--- NOTE | ~2016-09-16 | HP ---
History And Physical [address] [place]. [address] NAME: ROMEO CANCINO : 58 STATUS : ADM Zakia PAT#: [id number] AGE: 55 ADM/REG DATE : 09/16/16 MR#: [id number] REPORT SERV DATE: 09/16/16 DICTATED BY: JAKY MUNOZ DATE: 09/16/16 REPORT STATUS : Draft TRANSCRIBED BY: MODL DATE: 09/16/16 DATE OF ADMISSION: 09/16/2016 REASON FOR ADMISSION: Coffee-ground emesis. HISTORY: This is a 55-year-old white male patient with Down syndrome, who lives in [facility]. He has had some significant problems in the past, was recently hospitalized with pneumonia. He was discharged by Dr. Rivera on 08/06/2016. He was thought to have bilateral pneumonia and is aspirated. He did have a gastric emptying study while he was here. A swallow study showed no evidence of aspiration; however, the gastric emptying exam showed 12% emptying at 90 minutes. He was treated with broad-spectrum antibiotics and improved at the time of discharge. He usually undergoes endoscopies about every three months for esophageal stretching. The last one was done on 05/20/[address] Jaky Soriano. He was found to have Comfort esophagitis during that time, and the patient has been given only a pureed diet. Speech Therapy said he could take a mechanical soft diet during the prior hospitalization, however, probably because of his gastroparesis, he has significant reflux. The caregiver here from [facility] wanted to know about the rhonchi and the wheezing that he has. There was evidence of no pneumonia on the chest x-ray, but he does have prominent vascularity on an under-penetrated film. Dr. Sondra Marie has been watching here in the emergency room, his blood pressure had been running 90-105, but he only weighs about 90 pounds. He is unable to give history. The patient is planned to be admitted to observation, though a call to Dr. Soriano is pending and has not been returned yet as he does know him better than the examining physician here. PAST MEDICAL HISTORY: He was intubated and ventilated because of mucus plugging about a year ago. Dr. Henry did a dictation on the intubation that was done at that time. He does have a history of hypercholesterolemia and Down syndrome. He has a family who acknowledges his care there at [facility]. HOME MEDICATIONS: Include the following: Oyster shell calcium 500 mg p.o. daily, pantoprazole 40 mg p.o., albuterol, ipratropium, DuoNeb twice a day and p.r.n., Lac-Hydrin, calamine lotion phenolated, cholecalciferol D3 1000 units p.o. daily, docusate sodium, Flonase, loratadine as needed for allergies. ALLERGIES: SPICY FOODS ARE LISTED. SOCIAL HISTORY: He has never smoked. He does not drink. He has a brother and [id number] who are his [employer] of finance attorney. FAMILY HISTORY: Unobtainable and noncontributory. History And Physical [address] [address] NAME: ROMEO CANCINO : 58 STATUS : ADM Zakia PAT#: [id number] AGE: 55 ADM/REG DATE : 09/16/16 MR#: [id number] REPORT SERV DATE: 09/16/16 DICTATED BY: JAKY MUNOZ DATE: 09/16/16 REPORT STATUS : Draft TRANSCRIBED BY: JACI DATE: 09/16/16 REVIEW OF SYSTEMS: He feels okay. Otherwise, review of systems is unobtainable from this patient with limited conversation. PHYSICAL EXAMINATION: GENERAL: Pleasant white male with Down syndrome, in no acute distress. HEENT: Eyes are slightly dysconjugate and interpupillary distance. Pupils are round and reactive to light. NECK: Supple. Carotids are equal. No bruit. No thyromegaly. No JVD. Pharynx is clear. CHEST: Clear to A and P, though rhonchi are heard during bedside exposure with patient coughing in a rhonchus fashion. CHEST: Clear to tidal volume breathing. HEART: Regular S1, S2 without murmur, gallop, or click. ABDOMEN: Soft, nontender. Bowel sounds positive. Slightly obese. EXTREMITIES: Have no edema. Distal pulses are intact in the dorsalis pedis and posterior tibial. NEUROLOGIC: He does withdraw to plantar stimulation. He is alert, somewhat conversant. Speech is not goal directed nor cogent. He says he feels all right and has no specific complaint. SKIN: Without rash, ecchymosis, or bruising. His skin is somewhat dry. LABORATORY DATA: Abdominal series showed gas throughout the colon. Large amount of feces with improved aeration to the bases. Previous consolidation noted during the prior hospitalization. Lactate 1.8. White count was 14,000. His metabolic panel showed a procalcitonin of 0.26, sodium 137, potassium 4.2, BUN is 34, creatinine 0.91, glucose was 107. Globulin 3.6, albumin was 2.6. Type and screen was done with the patient showing O positive blood. His hemoglobin was 10, hematocrit 29.7, white count 14.7, and platelets were 270,000. INR 1.2. ASSESSMENT: 1. Coffee-ground emesis. Maybe from Crow esophagus; maybe gastritis. He is overdue for an EGD and dilation. 2. Pureed diet for questionable reasons, possibly from the gastroparesis. 3. Gastroparesis; ejection fraction 12% at 90 minutes during prior hospitalization. 4. History of Crow esophagus. 5. Down syndrome. 6. History of recent aspiration pneumonia. PLAN: 1. The patient does have esophageal reflux. He has what looks like gastroparesis. I am going to start him on some IV Reglan and see if the 5 mg q.i.d. does help with the gastric emptying and clear some of his symptoms of aspiration. His gastroesophageal reflux has caused Crow esophagus and Dr. Soriano dilating. We will consult Dr. Soriano. A call was made around 1:15 and at the time of this dictation, it is still pending return. 2. Leukocytosis. History And Physical [address] [place]. [address] NAME: ROMEO CANCINO : 58 STATUS : ADM Zakia PAT#: [id number] AGE: 55 ADM/REG DATE : 09/16/16 MR#: [id number] REPORT SERV DATE: 09/16/16 DICTATED BY: JAKY MUNOZ DATE: 09/16/16 REPORT STATUS : Draft TRANSCRIBED BY: JACI DATE: 09/16/16 3. Urinary incontinence, on VESIcare. We probably should stop this. It may impede the gastric emptying as well as may the ipratropium and his aerosols. We will turn to albuterol if he continues with the gastroparetic problem. 4. The patient is admitted to observation for EGD. If Dr. Soriano agrees, serial hemoglobin and hematocrits and IV Protonix and the Reglan as mentioned before. DB/MODL Jaky Munoz M.D. / [id number] CC: Juliano Solano Jr, MD FOX, TINA David Collins, M.D.
--- NOTE | ~2016-09-16 | DS ---
Discharge Summary [facility] [address] [place]. [address] NAME: ROMEO CANCINO : 58 STATUS : DIS IN PAT#: [id number] AGE: 55 ADM/REG DATE : 09/17/16 MR#: [id number] REPORT SERV DATE: 09/18/16 DICTATED BY: ROBBIE WALTON DATE: 09/18/16 REPORT STATUS : Draft TRANSCRIBED BY: MODL DATE: 09/18/16 ADMISSION DATE: 09/17/2016 DISCHARGE DATE: 09/18/2016 DISCHARGE DIAGNOSES: 1. Coffee-grounds emesis with melena. 2. History of Crow's esophagus. 3. Gastroesophageal reflux disease. 4. Gastroparesis. 5. Down syndrome. 6. History of aspiration pneumonia. CONSULTANTS: GI, Dr. Soriano. PROCEDURES: Upper endoscopy which showed a mildly severe reflux esophagitis with esophageal mucosal changes related to Crow's disease. The patient otherwise did not have any obvious source of bleeding. HOSPITAL COURSE: This is a 55-year-old gentleman with history of Down syndrome, who was admitted to the hospital with a coffee-grounds emesis. For details, please refer to excellent H and P dictated by Dr. Marcial Jimenes. In summary, the patient was admitted and was treated with IV Protonix drip for the coffee-grounds emesis. The patient was seen by GI and underwent an upper endoscopy with the findings as noted above. The patient was admitted with hemoglobin of 10.3, and it has trended down as low as 8.2, but on the most recent check, it was up again to 9.2. The patient did not require any blood transfusions, and the patient remained hemodynamically stable throughout his hospital stay. There was no other active issues or complications. The patient is now being discharged back to [place] to continue to be cared for. DISPOSITION: Back to [place]. DISCHARGE MEDICATIONS: The only new medication is Carafate 1 g p.o. a.c. and h.s., otherwise, no changes. FOLLOWUP: Please follow up with PCP in the next one to two weeks. A total of 25 minutes spent in coordinating this patient's discharge today. DICTATED BY: MD JARON Garcia/JACI Discharge Summary [facility] [address] [place]. [address] NAME: ROMEO CANCINO : 58 STATUS : DIS IN [facility]#: [id number] AGE: 55 ADM/REG DATE : 09/17/16 MR#: [id number] REPORT SERV DATE: 09/18/16 DICTATED BY: ROBBIE WALTON DATE: 09/18/16 REPORT STATUS : Draft TRANSCRIBED BY: MODL DATE: 09/18/16 Robbie Walton MD / [id number] CC: MD Peace Garcia
--- NOTE | ~2016-09-16 | EGD ---
EGD REPORT [facility] [address] [address] NAME: ROMEO BARRIGA : 58 STATUS : ADM Zakia PAT#: [id number] AGE: 55 ADM/REG DATE : 09/16/16 MR#: [id number] REPORT SERV DATE: 09/17/16 DICTATED BY: JAKY HEIN DATE: 09/17/16 REPORT STATUS : Draft TRANSCRIBED BY: [facility] DATE: 09/17/16 Endoscopy Center Patient Name: Romeo Barriga Date of : 1960 Attending MD: JAKY HEIN MD Procedure Date No Time: 09/17/2016 Procedure: Upper GI endoscopy Indications: Coffee-ground emesis Referring MD: EMERALD BELLO Medicines: General Anesthesia Complications: No immediate complications. Procedure: Pre-Anesthesia Assessment: - ASA Grade Assessment: III - A patient with severe systemic disease. After obtaining informed consent, the endoscope was passed under direct vision. Throughout the procedure, the patient's blood pressure, pulse, and oxygen saturations were monitored continuously. The GIF [id number] was introduced through the mouth, and advanced to the third part of duodenum. The upper GI endoscopy was accomplished without difficulty. The patient tolerated the procedure. Findings: Mildly severe esophagitis was found in the middle third of the esophagus. There were esophageal mucosal changes secondary to established long-segment Crow's disease present in the lower third of the esophagus. The maximum longitudinal extent of these mucosal changes was 4 cm in length. A small hiatus hernia was present. The examined duodenum was normal. Impression: - Mildly severe reflux esophagitis. - Esophageal mucosal changes secondary to established long-segment Crow's disease. - Hiatus hernia. - Normal examined duodenum. Recommendation: - Follow an antireflux regimen. - Continue present medications. - Use sucralfate suspension 1 gram PO QID. Procedure Code(s): --- Professional --- 07488, Esophagogastroduodenoscopy, flexible, transoral; diagnostic, including collection of specimen(s) by EGD REPORT [facility] [address] [place]. [address] NAME: ROMEO BARRIGA : 58 STATUS : ADM Zakia PAT#: [id number] AGE: 55 ADM/REG DATE : 09/16/16 MR#: [id number] REPORT SERV DATE: 09/17/16 DICTATED BY: JAKY HEIN DATE: 09/17/16 REPORT STATUS : Draft TRANSCRIBED BY: [employer] DATE: 09/17/16 brushing or washing, when performed (separate procedure) Diagnosis Code(s): --- Professional --- K21.0, Gastro-esophageal reflux disease with esophagitis K22.70, Crow's esophagus without dysplasia K44.9, Diaphragmatic hernia without obstruction or gangrene K92.0, Hematemesis CPT copyright 2013 [employer] [place] [employer]. All rights reserved. The codes documented in this report are preliminary and upon cloth grader review may be revised to meet current compliance requirements. JAKY HEIN MD 09/17/2016 2:01 PM This report has been signed electronically. Number of Addenda: 0 Note Initiated On: 09/17/2016 1:42 PM Scope Withdrawal Time 0 hours 0 minutes 0 seconds [address] [place] [address]
--- NOTE | ~2016-09-16 | CN ---
Consultation Report [facility] [address] [place]. [address] NAME: ROMEO CANCINO : 58 STATUS : ADM Zakia PAT#: [id number] AGE: 55 ADM/REG DATE : 09/16/16 MR#: [id number] REPORT SERV DATE: 09/17/16 DICTATED BY: JAKY HEIN DATE: 09/16/16 REPORT STATUS : Draft TRANSCRIBED BY: MODL DATE: 09/16/16 DATE OF CONSULTATION: 09/16/2016 HISTORY OF PRESENT ILLNESS: This is a 55-year-old white male who has Down syndrome, lives in [place], admitted with history apparently of nausea, vomiting, and some coffee-grounds emesis. Recent discharge about a week and half ago for aspiration pneumonia. 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 SOCIAL HISTORY: Negative. FAMILY HISTORY: Negative. PAST MEDICAL HISTORY: He has a past history of diverticular disease. His last EGD in 04/2016 was short-segment Crow, candidiasis, and hiatal hernia. Acute abdominal series in this admission shows moderate fecal stasis, minimal improvement of the right lung and persistent patchy infiltrate on the left lung. LABORATORY DATA: Lactate 1.8. BUN 34, creatinine 0.9. Normal LFTs. White count 14,400 and hemoglobin 10.3. INR of 1.2. PHYSICAL EXAMINATION: GENERAL: Alert and Down syndrome patient. HEENT: Anicteric. NECK: Negative. CHEST: Some scattered rhonchi. HEART: Regular rate and rhythm. No murmur or gallop. ABDOMEN: Soft, nontender. Bowel sounds present. EXTREMITIES/NEUROLOGIC: Pertinent for his Down syndrome. ASSESSMENT: 1. Down syndrome. 2. Recent admission for aspiration pneumonia with some mild improvement on the right on chest x-ray this admission. 3. History of gastroparesis. 4. Known Crow's. 5. Hiatal hernia. 6. Past history of PEG. SUGGESTION: 1. Agree with PPI therapy. 2. Continue to follow H and H. 3. Clear liquids. 4. EGD in the a.m. if pulmonary status is stable. We will follow with you. Consultation Report [facility] [address] [place]. [address] NAME: ROMEO CANCINO : 58 STATUS : ADM Zakia PAT#: [id number] AGE: 55 ADM/REG DATE : 09/16/16 MR#: [id number] REPORT SERV DATE: 09/17/16 DICTATED BY: JAKY HEIN DATE: 09/16/16 REPORT STATUS : Draft TRANSCRIBED BY: MODL DATE: 09/16/16 Thank you very much for the consultation. DC/JACI Jaky Hein M.D. / [id number] CC: MD EUGENIA Garcia TINA
[2016-09-16 10:23] LABS: BASOPHILS 0.1 %; BASOPHILS ABSOLUTE 0.02 10/3/uL (0.0-0.16); EOSINOPHILS 0.3 %; EOSINOPHILS ABSOLUTE 0.04 10/3/uL (0.0-0.53); HEMATOCRIT 29.7 % (40.0-51.0); HEMOGLOBIN 10.3 g/dL (13.6-17.8); IMMATURE GRANULOCYTES 0.9 %; IMMATURE GRANULOCYTES ABSOLUTE 0.13 10/3/uL (0.0-0.11); LYMPHOCYTES ABSOLUTE 1.72 10/3/uL (0.67-4.30); MEAN CORPUS HGB CONC 34.7 g/dL (32.0-36.0); MEAN CORPUSCULAR HEMOGLOB 32.9 pg (26.0-34.0); MEAN CORPUSCULAR VOLUME 94.9 fL (80-100); MEAN PLATELET VOLUME 9.7 fL (9.2-13.0); MONOCYTES 3.5 %; MONOCYTES ABSOLUTE 0.51 10/3/uL (0.21-1.20); NEUTROPHILS 83.2 %; NEUTROPHILS ABSOLUTE 11.95 10/3/uL (2.02-8.40); PLATELET COUNT 270 10/3/uL (150-400); RBC DISTRIBUTION WIDTH 13.6 % (12.0-16.0); RED CELL COUNT 3.13 10/6/uL (4.7-6.1); WHITE BLOOD CELLS 14.4 10/3/uL (4.5-10.5)
[2016-09-16 10:24] LABS: MANUAL DIFF NO %
[2016-09-16 10:32] LABS: INTERNATIONAL NORMAL RATI 1.2 UNITS (-); PROTIME (NOT ORD) 14.6 SEC (12.0-14.5)
[2016-09-16 10:33] LABS: PARTIAL THROMBO TIME 30.9 SEC (22.5-37.2)
[2016-09-16 10:37] LABS: A/G RATIO 0.8 (0.7-1.9); ALBUMIN 2.8 G/DL (3.5-5.0); ALKALINE PHOSPHATASE 67 U/L (45-117); BUN (BLOOD UREA NITROGEN) 34 MG/DL (6-23); CALCIUM, SERUM 8.6 MG/DL (8.5-10.4); CHLORIDE, SERUM 103 MMOL/L (96-112); CO2 (CARBON DIOXIDE) 28 MMOL/L (24-34); CREATININE 0.91 MG/DL (0.70-1.30); GFR AFRICAN AMERICAN 109 ML/MIN (>=60); GFR NON AFRICAN AMERICAN 94 ML/MIN (>=60); GLOBULIN 3.6 G/DL (2.5-4.1); GLUCOSE, SERUM 107 MG/DL (60-99); POTASSIUM, SERUM 4.2 MMOL/L (3.5-5.3); SGOT(AST) 28 U/L (5-40); SGPT(ALT) 25 U/L (5-65); SODIUM, SERUM 137 MMOL/L (135-148); TOTAL BILIRUBIN 0.4 MG/DL (0-1.2); TOTAL PROTEIN 6.4 G/DL (6.0-8.5)
[2016-09-16] MEDS ORDERED: DUONEB INH (10:54)
[2016-09-16] MEDS ORDERED: CALMOSEPTINE EX (10:56)
[2016-09-16] MEDS ORDERED: CLARIT10 PO (10:56)
[2016-09-16 11:37] LABS: PROCALCITONIN 0.26 ng/mL (<0.5)
[2016-09-16 11:48] LABS: LACTATE 1.8 MMOL/L (0.3-2.4)
[2016-09-16 17:18] LABS: HEMATOCRIT 26.8 % (40.0-51.0); HEMOGLOBIN 9.4 g/dL (13.6-17.8)
[2016-09-16 22:20] LABS: HEMATOCRIT 25.8 % (40.0-51.0); HEMOGLOBIN 8.9 g/dL (13.6-17.8)
[2016-09-17 05:12] LABS: BASOPHILS ABSOLUTE 0.05 10/3/uL (0.0-0.16); EOSINOPHILS 1.2 %; EOSINOPHILS ABSOLUTE 0.06 10/3/uL (0.0-0.53); HEMATOCRIT 25.4 % (40.0-51.0); HEMOGLOBIN 8.6 g/dL (13.6-17.8); IMMATURE GRANULOCYTES 1.6 %; IMMATURE GRANULOCYTES ABSOLUTE 0.08 10/3/uL (0.0-0.11); LYMPHOCYTES 26.6 %; LYMPHOCYTES ABSOLUTE 1.34 10/3/uL (0.67-4.30); MEAN CORPUS HGB CONC 33.9 g/dL (32.0-36.0); MEAN CORPUSCULAR HEMOGLOB 32.6 pg (26.0-34.0); MEAN CORPUSCULAR VOLUME 96.2 fL (80-100); MEAN PLATELET VOLUME 9.6 fL (9.2-13.0); MONOCYTES 6.3 %; MONOCYTES ABSOLUTE 0.32 10/3/uL (0.21-1.20); NEUTROPHILS 63.3 %; NEUTROPHILS ABSOLUTE 3.19 10/3/uL (2.02-8.40); PLATELET COUNT 233 10/3/uL (150-400); RBC DISTRIBUTION WIDTH 13.7 % (12.0-16.0); RED CELL COUNT 2.64 10/6/uL (4.7-6.1)
[2016-09-17 05:13] LABS: MANUAL DIFF NO %
[2016-09-17 05:24] LABS: CALCIUM, SERUM 7.8 MG/DL (8.5-10.4); CHLORIDE, SERUM 106 MMOL/L (96-112); CO2 (CARBON DIOXIDE) 26 MMOL/L (24-34); CREATININE 0.72 MG/DL (0.70-1.30); GFR AFRICAN AMERICAN 121 ML/MIN (>=60); GFR NON AFRICAN AMERICAN 104 ML/MIN (>=60); POTASSIUM, SERUM 3.6 MMOL/L (3.5-5.3); SODIUM, SERUM 139 MMOL/L (135-148)
[2016-09-17 05:31] LABS: BUN (BLOOD UREA NITROGEN) 14 MG/DL (6-23); GLUCOSE, SERUM 83 MG/DL (60-99)
[2016-09-17 10:43] LABS: HEMATOCRIT 27.8 % (40.0-51.0); HEMOGLOBIN 9.6 g/dL (13.6-17.8)
[2016-09-17 19:01] LABS: HEMATOCRIT 26.7 % (40.0-51.0); HEMOGLOBIN 9.3 g/dL (13.6-17.8)
[2016-09-18 02:52] LABS: HEMOGLOBIN 8.2 g/dL (13.6-17.8)
[2016-09-18 02:54] LABS: HEMATOCRIT 23.7 % (40.0-51.0)
[2016-09-18 10:33] LABS: HEMOGLOBIN 9.2 g/dL (13.6-17.8)
[2016-09-18 10:34] LABS: HEMATOCRIT 26.7 % (40.0-51.0)
[2016-09-18] MEDS ORDERED: SUCR PO (13:42)
[2017-01-10] MEDS ORDERED: PROTONI1 PO (18:09)
[2017-01-10] MEDS ORDERED: VESICARE5 PO (18:09)
[2017-01-10] MEDS ORDERED: DUONEB INH (18:10)
[2017-01-10] MEDS ORDERED: OYST-CAL500 MG PO (18:10)
[2017-01-10] MEDS ORDERED: LAC-HYDRIN TOP (18:11)
[2017-01-10] MEDS ORDERED: VITAMIN D400 UNI1 PO (18:11)
[2017-01-10] MEDS ORDERED: COLACEUDL PO (18:11)
[2017-01-10] MEDS ORDERED: FERROUS SULFATE 15 MG/ML PO (18:14)
[2017-01-10] MEDS ORDERED: FLONASE NAS (18:14)
[2017-01-10] MEDS ORDERED: REG5 PO (18:15)
[2017-01-10] MEDS ORDERED: CLARIT10 PO (18:15)
[2017-01-10] MEDS ORDERED: ZOFRAN4 PO (18:16)
[2017-01-10] MEDS ORDERED: SELENIUM SULFIDE 2.5% TOP (18:17)
[2017-01-10] MEDS ORDERED: KLONO5 PO (18:18)
[2017-01-10] MEDS ORDERED: CALMOSEPTINE O2.5 OZ TOP (18:21)
[2017-01-10] MEDS ORDERED: [UNRECOGNIZED DRUG - OTHER] TOP (18:23)
[2017-01-19] MEDS ORDERED: SUCR PO (13:26)
[2017-01-19] MEDS ORDERED: ACETSUP650 PO/LIQ (13:27)
== END 2016-09-18 14:16 | disposition home or self-care (01) | DRG 378 ==
LOC: ER 09:52 → 6NO 14:24
PROVIDERS: Emergency Medicine; Internal Medicine; Internal Medicine Gastroenterology
PROC: 0DJ08ZZ Inspection of Upper Intestinal Tract, Via Natural or Artificial Opening Endoscopic (ICD-10-PCS; principal; 2016-09-17 13:48)
DX: K92.0 Hematemesis (principal); D62 Acute posthemorrhagic anemia; K31.84 Gastroparesis; K22.70 Barrett's esophagus without dysplasia; K21.0 Gastro-esophageal reflux disease with esophagitis; Q90.9 Down syndrome, unspecified; K57.90 Diverticulosis of intestine, part unspecified, without perforation or abscess without bleeding; K44.9 Diaphragmatic hernia without obstruction or gangrene; R32 Unspecified urinary incontinence; Z87.01 Personal history of pneumonia (recurrent)
CPT/HCPCS: 36415; 74022; 80048; 80053; 83605; 84145; 85014; 85018; 85025; 85610; 85730; 86850; 86900; 86901; 87040; 93005; 94640; 99285; A9270-GY; C9113; J0330; J2765

== ENCOUNTER 2016-10-16 12:52 | Inpatient (IN) | payer MEDICARE, OTHER ==
--- NOTE | ~2016-10-16 | HP ---
History And Physical [address] [place]. [address] NAME: ROMEO CANCINO : 58 STATUS : ADM [facility]#: [id number] AGE: 56 ADM/REG DATE : 10/16/16 MR#: [id number] REPORT SERV DATE: 10/17/16 DICTATED BY: VÍCTOR ALBRECHT DATE: 10/17/16 REPORT STATUS : Draft TRANSCRIBED BY: MODL DATE: 10/17/16 DATE OF ADMISSION: 10/16/2016 CHIEF COMPLAINT: A 56-year-old male presenting with aspiration event after vomiting. HISTORY OF PRESENT ILLNESS: The patient's history was obtained through an interview with the patient's caregiver from [facility]. The patient only able to answer very simple yes, no questions regarding his current symptoms. There was also review made of [facility] medical records. The patient was in normal state of health earlier today when suddenly he became quite nauseated and had a significant vomiting episode. He apparently choked and aspirated on his vomit and then has had increasing cough and shortness of breath ever since that time. The patient has been very "emotional" and crying out and distressed, which is very atypical for him. Of interest to [place] Staff is that the patient had been recently treated for constipation and this led to a "blowout" diarrhea earlier today. No fevers or chills. The patient has not had any pain behavior, and when I ask him, he states he is not having any pain at this moment. REVIEW OF SYSTEMS: Otherwise, a 14-point review of systems was obtained and was negative, although could question validity in light of patient's dementia and difficulty answering for his own condition. PAST MEDICAL HISTORY: 1. Down syndrome, at [facility]. 2. 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 Marcial Soriano. 3. Pneumonia with aspiration in the past. 4. Elevated cholesterol. 5. Gastroparesis. 6. Esophageal dilatation. 7. Benign prostatic hypertrophy with history of urinary retention. 8. Diverticulitis. 9. Anemia. 10.Obstructive sleep apnea, on CPAP. 11.Cholelithiasis. 12.Nephrolithiasis. 13.Vitamin D deficiency. PAST SURGICAL HISTORY: 1. Mastoid surgery. History And Physical [address] [place] [place]. [address] NAME: ROMEO CANCINO : 58 STATUS : ADM IN PAT#: [id number] AGE: 56 ADM/REG DATE : 10/16/16 MR#: [id number] REPORT SERV DATE: 10/17/16 DICTATED BY: VÍCTOR ALBRECHT DATE: 10/17/16 REPORT STATUS : Draft TRANSCRIBED BY: JACI DATE: 10/17/16 2. Ear tubes. ALLERGIES: VALIUM AND DEMEROL. SOCIAL HISTORY: No tobacco abuse. No alcohol abuse. Resides at [facility]. The facility describes him as "the life of the libertarian." He loves to dance and is very social. 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 FAMILY HISTORY: Both mother and father are . No other family patterns of disease are known. CURRENT MEDICATIONS: Include albuterol inhaler; ammonium lactate, topical; Calmoseptine ointment; vitamin D; Klonopin 0.5 mg p.o. daily; docusate 100 mg p.o. b.i.d.; Flonase; Claritin 10 mg p.o. daily; Zofran p.r.n.; calcium supplement; Protonix 40 mg p.o. b.i.d., VESIcare 5 mg p.o. daily, sucralfate 1 g before meals and at bedtime, and iron supplement. PHYSICAL EXAMINATION: VITAL SIGNS: Temperature 97.8, pulse 100, blood pressure 178/114, respiratory rate 14, and O2 saturation 100% on room air. GENERAL: An ill-appearing male, in evidence of some distress as he is crying out in irritable, mostly from coughing and shortness of breath. HEENT: Pupils equal, round, and reactive to light. No conjunctival pallor. No scleral icterus. Nares are patent. Oropharynx is clear of obstruction. Moist mucous membranes. NECK: Trachea midline. No thyromegaly. LYMPH: No cervical lymphadenopathy. No supraclavicular lymphadenopathy. RESPIRATORY: The patient has scattered rhonchi that predominate. No wheezes. I do not appreciate any focal egophony. No rales. The patient has a labored respiratory effort. CARDIOVASCULAR: Tachycardic. Regular rhythm. No murmurs, rubs, or gallops. No current extremity edema is appreciated. ABDOMEN: Soft, nontender, nondistended. Normal bowel sounds auscultated throughout. No hepatosplenomegaly. DERMATOLOGICAL: Warm and dry extremities. No pallor. No cyanosis. PSYCHIATRIC: Normal affect. Good mood. The patient is alert. He is chronically disoriented to time and location and has poor communication skills. LABORATORY DATA: White blood cell count 15.8, hemoglobin 12, hematocrit 37, and platelets 225. Sodium 139, potassium 4.2, chloride 105, bicarb 25, BUN 17, creatinine 1.0, glucose 80. Troponin negative. INR 1.2. Lactic acid 1.5. STUDIES: 1. Chest x-ray by my own evaluation shows right upper lung and right middle lung pneumonia and infiltrate. 2. EKG by my own evaluation shows sinus rhythm. ASSESSMENT AND PLAN: 1. Sepsis with tachycardia. White blood cell count of 15.8. Check blood cultures. Place on IV antibiotics. History And Physical [address] [address] NAME: ROMEO CANCINO : 58 STATUS : ADM [facility]#: [id number] AGE: 56 ADM/REG DATE : 10/16/16 MR#: [id number] REPORT SERV DATE: 10/17/16 DICTATED BY: VÍCTOR ALBRECHT DATE: 10/17/16 REPORT STATUS : Draft TRANSCRIBED BY: JACI DATE: 10/17/16 2. Aspiration pneumonia after a vomiting episode. Check blood cultures. Place on IV antibiotics. 3. Down syndrome. 4. Gastroparesis. Try IV Reglan. 5. Obstructive sleep apnea. Continue CPAP as tolerated. ASHWINL/JACI Víctor Albrecht M.D. / [id number] CC: Familia Haji
--- NOTE | ~2016-10-16 | DS ---
Discharge Summary [facility] [address] [place]. [address] NAME: ROMEO CANCINO : 58 STATUS : DIS IN PAT#: [id number] AGE: 56 ADM/REG DATE : 10/16/16 MR#: [id number] REPORT SERV DATE: 10/21/16 DICTATED BY: ROCÍO VALDIVIA DATE: 10/20/16 REPORT STATUS : Draft TRANSCRIBED BY: MODL DATE: 10/20/16 ADMISSION DATE: 10/16/2016 DISCHARGE DATE: 10/20/2016 FINAL DIAGNOSES: 1. Status post sepsis, secondary to bilateral aspiration pneumonia. 2. Obstructive sleep apnea. 3. Gastroparesis, hiatal hernia, and gastroesophageal reflux disease. 4. Crow esophagus. 5. Benign prostatic hypertrophy. DIAGNOSTIC EXAM: Chest x-ray showing enlarging opacity with volume loss in the right upper lobe. No new lung infiltrates. Repeat chest x-ray showing continued patchy consolidation in the right upper lobe with associated volume loss, suggest CT. CAT scan of the chest showing ill-defined infiltrate superior right upper lobe and very subtle infiltrate in the bilateral lower lobes suggesting bilateral pneumonia. Fluid and air distended thoracic esophagus suggesting relatively severe GE reflux, large hiatal hernia. Contracted gallbladder represent physiologic response to recent meal. HOSPITAL COURSE: Please refer to the H and P done by Dr. Mckinney dated on 10/17/2016. Briefly, this is a 56-year-old male who comes in for shortness of breath. The patient has a history of aspiration pneumonia and Down syndrome and he was doing well until on the day of admission where he had vomiting, choked, aspirated and has started having some cough and shortness of breath. The patient was then brought to the hospital, was diagnosed with sepsis by Dr. Mckinney. The initial chest x-ray was not clear for pneumonia; however, he was treated with a possible aspiration. Further workup revealed the above. The patient was continued on broad-spectrum antibiotics and as he got better, he is doing well on 99% on room air at rest. The patient is able to eat without any nausea and vomiting and tolerating p.o. medications. So with this, we will be discharging the patient with the above diagnosis. He will be following up with his PCP, Peace Fontanez in [place]. DISCHARGE MEDICATIONS: The patient will continue his home medications of ammonium lactate lotion a day, Oyster Shell Calcium 500 mg three times a day, vitamin D 1000 units a day, docusate liquid twice a day 100 mg, Flonase two sprays at night, Claritin 10 mg a day, Zofran 4 mg as needed, Protonix 40 mg twice a day, sucralfate 1 g p.o. q.a.c. and at bedtime, VESIcare 5 mg a day, Klonopin 0.5 mg a day, Flagyl 500 mg p.o. q.8 h. x5 days, Levaquin 750 mg p.o. daily x5 days, iron 60 mg twice a day, DuoNeb four times a day as needed. DISCHARGE INSTRUCTIONS: The patient's Down syndrome, gastroparesis, hiatal hernia makes him likely to have aspiration again and his chances for readmission is highly likely. It will be worthwhile for the PCP to discuss code status on this the patient's family. DICTATED BY: Rocío Valdivia M.D. Discharge Summary [address] [address] NAME: ROMEO CANCINO : 58 STATUS : DIS IN PAT#: [id number] AGE: 56 ADM/REG DATE : 10/16/16 MR#: [id number] REPORT SERV DATE: 10/21/16 DICTATED BY: ROCÍO VALDIVIA DATE: 10/20/16 REPORT STATUS : Draft TRANSCRIBED BY: JACI DATE: 10/20/16 SUSAN Rocío Valdivia M.D. / [id number] CC: Familia Haji
[~2016-10-16 12:52] MED LIST changes: +CALMOSEPTINE EX; +SUCR PO
[2016-10-16] MEDS ORDERED: VESICARE5 PO (16:27)
[2016-10-16] MEDS ORDERED: PROTONI1 PO (16:27)
[2016-10-16] MEDS ORDERED: SUCR PO (16:27)
[2016-10-16] MEDS ORDERED: LAC-HYDRIN TOP (16:28)
[2016-10-16] MEDS ORDERED: VITAMIN D1000 UNI1 PO (16:28)
[2016-10-16] MEDS ORDERED: SILACE60 MG/15 M PO (16:29)
[2016-10-16] MEDS ORDERED: FERROUS SULF 15 MG/ML PO (16:31)
[2016-10-16] MEDS ORDERED: CLARIT10 PO (16:32)
[2016-10-16] MEDS ORDERED: OYST-CAL500 MG PO (16:32)
[2016-10-16] MEDS ORDERED: FLONASE NAS (16:32)
[2016-10-16] MEDS ORDERED: ZOFRAN4 PO (16:32)
[2016-10-16] MEDS ORDERED: KLONO5 PO (16:33)
[2016-10-16] MEDS ORDERED: DUONEB INH (16:33)
[2016-10-16] MEDS ORDERED: [UNRECOGNIZED DRUG - OTHER] TOP (16:34)
[2016-10-16] MEDS ORDERED: CALMOSEPTINE O2.5 OZ TOP (16:35)
[2016-10-16 17:26] LABS: BASOPHILS 0.3 %; BASOPHILS ABSOLUTE 0.04 10/3/uL (0.0-0.16); EOSINOPHILS 0.3 %; EOSINOPHILS ABSOLUTE 0.04 10/3/uL (0.0-0.53); IMMATURE GRANULOCYTES 1.1 %; IMMATURE GRANULOCYTES ABSOLUTE 0.17 10/3/uL (0.0-0.11); LYMPHOCYTES 3.8 %; MEAN CORPUS HGB CONC 33.2 g/dL (32.0-36.0); MEAN CORPUSCULAR HEMOGLOB 31.2 pg (26.0-34.0); MEAN CORPUSCULAR VOLUME 93.9 fL (80-100); MEAN PLATELET VOLUME 10.5 fL (9.2-13.0); MONOCYTES 3.4 %; MONOCYTES ABSOLUTE 0.54 10/3/uL (0.21-1.20); NEUTROPHILS 91.1 %; NEUTROPHILS ABSOLUTE 14.43 10/3/uL (2.02-8.40); PLATELET COUNT 225 10/3/uL (150-400); RBC DISTRIBUTION WIDTH 14.5 % (12.0-16.0)
[2016-10-16 17:27] LABS: HEMATOCRIT 36.7 % (40.0-51.0); HEMOGLOBIN 12.2 g/dL (13.6-17.8); MANUAL DIFF NO %; RED CELL COUNT 3.91 10/6/uL (4.7-6.1); WHITE BLOOD CELLS 15.8 10/3/uL (4.5-10.5)
[2016-10-16 17:37] LABS: INTERNATIONAL NORMAL RATI 1.2 UNITS (-); PROTIME (NOT ORD) 14.9 SEC (12.0-14.5)
[2016-10-16 17:38] LABS: PARTIAL THROMBO TIME 31.6 SEC (22.5-37.2)
[2016-10-16 17:42] LABS: BUN (BLOOD UREA NITROGEN) 17 MG/DL (6-23); CALCIUM, SERUM 8.6 MG/DL (8.5-10.4); CHEST PAIN PROFILE TAT 0 Hrs 21 Mins; CHLORIDE, SERUM 105 MMOL/L (96-112); CO2 (CARBON DIOXIDE) 25 MMOL/L (24-34); CREATININE 1.01 MG/DL (0.70-1.30); GFR AFRICAN AMERICAN 95 ML/MIN (>=60); GFR NON AFRICAN AMERICAN 82 ML/MIN (>=60); GLUCOSE, SERUM 86 MG/DL (60-99); POTASSIUM, SERUM 4.2 MMOL/L (3.5-5.3); SODIUM, SERUM 139 MMOL/L (135-148); TROPONIN I <0.02 NG/ML (<0.05)
[2016-10-17 06:46] LABS: BASOPHILS 0.5 %; BASOPHILS ABSOLUTE 0.05 10/3/uL (0.0-0.16); EOSINOPHILS 0.8 %; EOSINOPHILS ABSOLUTE 0.09 10/3/uL (0.0-0.53); IMMATURE GRANULOCYTES 0.6 %; IMMATURE GRANULOCYTES ABSOLUTE 0.06 10/3/uL (0.0-0.11); INTERNATIONAL NORMAL RATI 1.4 UNITS (-); LYMPHOCYTES 13.9 %; LYMPHOCYTES ABSOLUTE 1.47 10/3/uL (0.67-4.30); MEAN CORPUS HGB CONC 33.3 g/dL (32.0-36.0); MEAN CORPUSCULAR HEMOGLOB 31.3 pg (26.0-34.0); MEAN CORPUSCULAR VOLUME 93.8 fL (80-100); MEAN PLATELET VOLUME 9.9 fL (9.2-13.0); MONOCYTES 4.6 %; MONOCYTES ABSOLUTE 0.49 10/3/uL (0.21-1.20); NEUTROPHILS 79.6 %; NEUTROPHILS ABSOLUTE 8.45 10/3/uL (2.02-8.40); PARTIAL THROMBO TIME 46.7 SEC (22.5-37.2); PLATELET COUNT 217 10/3/uL (150-400); RBC DISTRIBUTION WIDTH 14.5 % (12.0-16.0); WHITE BLOOD CELLS 10.6 10/3/uL (4.5-10.5)
[2016-10-17 06:47] LABS: MANUAL DIFF NO %
[2016-10-17 06:49] LABS: PROTIME (NOT ORD) 17.2 SEC (12.0-14.5)
[2016-10-17 07:05] LABS: A/G RATIO 0.8 (0.7-1.9); ALBUMIN 2.4 G/DL (3.5-5.0); ALKALINE PHOSPHATASE 57 U/L (45-117); BUN (BLOOD UREA NITROGEN) 17 MG/DL (6-23); CALCIUM, SERUM 7.8 MG/DL (8.5-10.4); CHLORIDE, SERUM 108 MMOL/L (96-112); CO2 (CARBON DIOXIDE) 22 MMOL/L (24-34); CREATININE 1.09 MG/DL (0.70-1.30); GFR AFRICAN AMERICAN 87 ML/MIN (>=60); GFR NON AFRICAN AMERICAN 75 ML/MIN (>=60); GLOBULIN 3.2 G/DL (2.5-4.1); GLUCOSE, SERUM 89 MG/DL (60-99); POTASSIUM, SERUM 3.9 MMOL/L (3.5-5.3); SGOT(AST) 19 U/L (5-40); SGPT(ALT) 17 U/L (5-65); SODIUM, SERUM 138 MMOL/L (135-148); TOTAL BILIRUBIN 0.6 MG/DL (0-1.2); TOTAL PROTEIN 5.6 G/DL (6.0-8.5); TROPONIN I <0.02 NG/ML (<0.05)
[2016-10-18 06:41] LABS: BASOPHILS 0.7 %; BASOPHILS ABSOLUTE 0.03 10/3/uL (0.0-0.16); EOSINOPHILS 2.7 %; EOSINOPHILS ABSOLUTE 0.12 10/3/uL (0.0-0.53); HEMATOCRIT 31.2 % (40.0-51.0); HEMOGLOBIN 10.3 g/dL (13.6-17.8); IMMATURE GRANULOCYTES 1.8 %; IMMATURE GRANULOCYTES ABSOLUTE 0.08 10/3/uL (0.0-0.11); LYMPHOCYTES 20.6 %; MEAN CORPUSCULAR HEMOGLOB 30.5 pg (26.0-34.0); MEAN CORPUSCULAR VOLUME 92.3 fL (80-100); MEAN PLATELET VOLUME 9.7 fL (9.2-13.0); MONOCYTES 8.7 %; MONOCYTES ABSOLUTE 0.38 10/3/uL (0.21-1.20); NEUTROPHILS 65.5 %; NEUTROPHILS ABSOLUTE 2.86 10/3/uL (2.02-8.40); PLATELET COUNT 209 10/3/uL (150-400); RBC DISTRIBUTION WIDTH 14.2 % (12.0-16.0); RED CELL COUNT 3.38 10/6/uL (4.7-6.1)
[2016-10-18 06:43] LABS: MANUAL DIFF NO %; WHITE BLOOD CELLS 4.4 10/3/uL (4.5-10.5)
[2016-10-19 07:05] LABS: BASOPHILS 1.8 %; BASOPHILS ABSOLUTE 0.08 10/3/uL (0.0-0.16); EOSINOPHILS 3.4 %; EOSINOPHILS ABSOLUTE 0.15 10/3/uL (0.0-0.53); HEMATOCRIT 32.2 % (40.0-51.0); HEMOGLOBIN 10.5 g/dL (13.6-17.8); IMMATURE GRANULOCYTES 1.8 %; IMMATURE GRANULOCYTES ABSOLUTE 0.08 10/3/uL (0.0-0.11); LYMPHOCYTES 23.1 %; LYMPHOCYTES ABSOLUTE 1.01 10/3/uL (0.67-4.30); MEAN CORPUS HGB CONC 32.6 g/dL (32.0-36.0); MEAN CORPUSCULAR HEMOGLOB 30.4 pg (26.0-34.0); MEAN CORPUSCULAR VOLUME 93.3 fL (80-100); MEAN PLATELET VOLUME 10.7 fL (9.2-13.0); MONOCYTES 8.4 %; MONOCYTES ABSOLUTE 0.37 10/3/uL (0.21-1.20); NEUTROPHILS 61.5 %; NEUTROPHILS ABSOLUTE 2.69 10/3/uL (2.02-8.40); PLATELET COUNT 206 10/3/uL (150-400); RBC DISTRIBUTION WIDTH 14.3 % (12.0-16.0); RED CELL COUNT 3.45 10/6/uL (4.7-6.1); WHITE BLOOD CELLS 4.4 10/3/uL (4.5-10.5)
[2016-10-19 07:10] LABS: MANUAL DIFF NO %
[2016-10-19 07:17] LABS: BUN (BLOOD UREA NITROGEN) 17 MG/DL (6-23); CHLORIDE, SERUM 103 MMOL/L (96-112); CO2 (CARBON DIOXIDE) 25 MMOL/L (24-34); CREATININE 1.12 MG/DL (0.70-1.30); GFR AFRICAN AMERICAN 84 ML/MIN (>=60); GFR NON AFRICAN AMERICAN 73 ML/MIN (>=60); GLUCOSE, SERUM 95 MG/DL (60-99); SODIUM, SERUM 134 MMOL/L (135-148)
[2016-10-19 07:18] LABS: CALCIUM, SERUM 8.8 MG/DL (8.5-10.4)
[2016-10-20 05:22] LABS: BUN (BLOOD UREA NITROGEN) 16 MG/DL (6-23); CALCIUM, SERUM 9.7 MG/DL (8.5-10.4); CHLORIDE, SERUM 100 MMOL/L (96-112); CO2 (CARBON DIOXIDE) 24 MMOL/L (24-34); CREATININE 1.09 MG/DL (0.70-1.30); GFR AFRICAN AMERICAN 87 ML/MIN (>=60); GFR NON AFRICAN AMERICAN 75 ML/MIN (>=60); GLUCOSE, SERUM 95 MG/DL (60-99); POTASSIUM, SERUM 4.3 MMOL/L (3.5-5.3); SODIUM, SERUM 133 MMOL/L (135-148)
[2016-10-20] MEDS ORDERED: LEVAQUIN5T (09:53)
[2016-10-20] MEDS ORDERED: FLAG500TAB PO (09:55)
[2017-01-10] MEDS ORDERED: PROTONI1 PO (18:09)
[2017-01-10] MEDS ORDERED: VESICARE5 PO (18:09)
[2017-01-10] MEDS ORDERED: OYST-CAL500 MG PO (18:10)
[2017-01-10] MEDS ORDERED: DUONEB INH (18:10)
[2017-01-10] MEDS ORDERED: LAC-HYDRIN TOP (18:11)
[2017-01-10] MEDS ORDERED: VITAMIN D400 UNI1 PO (18:11)
[2017-01-10] MEDS ORDERED: COLACEUDL PO (18:11)
[2017-01-10] MEDS ORDERED: FLONASE NAS (18:14)
[2017-01-10] MEDS ORDERED: FERROUS SULFATE 15 MG/ML PO (18:14)
[2017-01-10] MEDS ORDERED: CLARIT10 PO (18:15)
[2017-01-10] MEDS ORDERED: REG5 PO (18:15)
[2017-01-10] MEDS ORDERED: ZOFRAN4 PO (18:16)
[2017-01-10] MEDS ORDERED: SELENIUM SULFIDE 2.5% TOP (18:17)
[2017-01-10] MEDS ORDERED: KLONO5 PO (18:18)
[2017-01-10] MEDS ORDERED: CALMOSEPTINE O2.5 OZ TOP (18:21)
[2017-01-10] MEDS ORDERED: [UNRECOGNIZED DRUG - OTHER] TOP (18:23)
[2017-01-19] MEDS ORDERED: SUCR PO (13:26)
[2017-01-19] MEDS ORDERED: ACETSUP650 PO/LIQ (13:27)
== END 2016-10-20 16:51 | disposition home or self-care (01) | DRG 871 ==
LOC: ER 12:52 → 7NO 19:16
PROVIDERS: Hospitalist; Internal Medicine; Nurse Practitioner Family
DX: A41.9 Sepsis, unspecified organism (principal); J69.0 Pneumonitis due to inhalation of food and vomit; Q90.9 Down syndrome, unspecified; K31.84 Gastroparesis; G47.33 Obstructive sleep apnea (adult) (pediatric); E55.9 Vitamin D deficiency, unspecified; K21.9 Gastro-esophageal reflux disease without esophagitis; K44.9 Diaphragmatic hernia without obstruction or gangrene; N40.0 Benign prostatic hyperplasia without lower urinary tract symptoms; Z87.01 Personal history of pneumonia (recurrent); K22.70 Barrett's esophagus without dysplasia; Z79.51 Long term (current) use of inhaled steroids
CPT/HCPCS: 71010; 71250; 80048; 80053; 83605; 83735; 83880; 84145; 84439; 84443; 84484; 85025; 85610; 85730; 87040; 93005; 94640; 94660; 96365; 96375; 99284; A9270-GY; C9113; J0456; J1956; J2405; J2765